=== PATIENT | female | born 1990 | race Caucasian/White ===

== ENCOUNTER 2019-10-18 15:31 | Emergency (ER) | payer OTHER, SELFPAY ==
[2019-10-18 15:58] VITALS: BP 112/76; PULSE 83; RESP 16; TEMP 36.8; O2SAT 99
--- NOTE | 2019-10-18 17:11 | ED.GENADULT ---
HPI - General Adult General Chief complaint: Upper Respiratory Infection Stated complaint: Cough/Sore Throat/Earache/Fever Time Seen by Provider: 10/18/19 17:11 Source: patient and RN notes reviewed Mode of arrival: ambulatory Limitations: no limitations History of Present Illness HPI narrative: 29-year-old female presents with complains of upper respiratory infection symptoms, body aches, bilateral ear pain, facial congestion and pressure, sore throat, fatigue, fever, and cough for 5 days. DayQuil, NyQuil, Zyrtec, vitamin D, and Ibuprofen (last 10/17/19) with some relief. Constant dry cough and intermittent productive cough. Chest congestion. Rhinorrhea and nasal congestion. Denies sore throat. Fevers as high as 100.8F, orally without chills. No drooling, neck or throat swelling. No chest pain, wheezing, or shortness of breath. No exacerbation factors. Denies nausea, vomiting, and abdominal pain. Tolerating liquids well. Amada denies being , LMP 2 weeks ago. Some parts of this dictation were generated by voice recognition software and may contain typographical and/or grammatical inaccuracies. Related Data Allergies Allergy/AdvReac Type Severity Reaction Status Date / Time No Known Allergies Allergy Unverified 11/19/18 12:05 Review of Systems Review of Systems: Narrative: CONSTITUTIONAL: Complains of fever, fatigue. Denies chills, sweats. EYES: Denies visual changes, redness, discharge. ENT: Denies rhinorrhea, congestion, facial congestion and pressure. Denies sore throat, otalgia. CARDIOVASCULAR: Denies chest pain, palpitations, edema. RESPIRATORY: Denies dyspnea, wheezing. Complains of dry cough, intermittent productive cough. . GASTROINTESTINAL: Denies abdominal pain, nausea, vomiting, diarrhea. GENITOURINARY: Denies dysuria, hematuria, abnormal discharge. SKIN: Denies rash or itching. MUSCULOSKELETAL: Denies acute back pain, joint pain. Complains of myalgia. NEUROLOGIC: Denies numbness or focal weakness. Complains of intermittent SHAIKH. PSYCHIATRIC: Denies anxiety or depression. All systems reviewed & are unremarkable except as noted in HPI and below. [facility] Past Medical History Medical History (Updated 10/19/19 @ 00:00 by Background Daemon) Right leg injury Surgical History Surgical History (Updated 10/18/19 @ 17:21 by SEBASTIÁN Cook) Hx of appendectomy Family History Family History (Updated 10/18/19 @ 17:22 by SEBASTIÁN Cook) Grandparent Pancreatic cancer Diabetes mellitus Grandparent Hypertension Social History Social History (Updated 10/18/19 @ 17:22 by SEBASTIÁN Cook) Smoking status: Never smoker Second hand tobacco smoke exposure: No Alcohol intake: current Substance use: never Living arrangements: with family Occupation/Education: occupation Gender identity (if verbalized by the patient): Female Comments At time of signature, agree with nurse past medical, surgical, social, and family history. There is no relevant family history pertinent to the presenting complaint. Exam Narrative: Exam Narrative: GENERAL: This is a well-nourished, well-developed patient, in no apparent distress. Talks in full sentences and ambulates with steady gait without dyspnea. HEAD: normocephalic, atraumatic. EYES: PERRL. Sclera clear/white. Vision is grossly intact. EARS: External ears normal, auditory canals clear and without drainage, TMs normal without perforation. Hearing grossly intact. NOSE: External nose normal with no obvious nasal discharge, nares with mild redness and enlarged turbinates, clear rhinorrhea. SINUSES: Mild tenderness upon palpation to maxillary and frontal sinus. THROAT: Mucous membranes moist, posterior pharynx with PND, mild erythema, no exudate, and normal tonsils. No drainage, no concern for Peritonsillar abscess. No drooling, trismus, or neck swelling. NECK: Neck supple, non-tender without lymphadenopathy, masses or t
== END 2019-10-18 17:30 | disposition home or self-care (01) ==
PROVIDERS: Emergency Provider Nurse Practitioner Family; PCP Emergency Medicine
DX: B34.9 Viral infection, unspecified (principal)
CPT/HCPCS: 99213; G0463

== ENCOUNTER 2020-07-02 08:25 | Emergency (ER) | payer OTHER, SELFPAY ==
--- NOTE | 2020-07-02 08:31 | ED_ITS ---
HPI - Skin/Abscess/Foreign Bdy General Chief complaint: Skin/Abscess/Foreign Body Stated complaint: Rash on legs Related Data Allergies Allergy/AdvReac Type Severity Reaction Status Date / Time No Known Allergies Allergy Verified 07/02/20 08:38 [facility] Past Medical History Medical History (Updated 10/19/19 @ 00:00 by Gaurang Chow) Right leg injury Surgical History Surgical History (Updated 10/18/19 @ 17:21 by SEBASTIÁN Cook) Hx of appendectomy Family History Family History (Updated 10/18/19 @ 17:22 by SEBASTIÁN Cook) Grandparent Pancreatic cancer Diabetes mellitus Grandparent Hypertension Social History Social History (Updated 10/18/19 @ 17:22 by SEBASTIÁN Cook) Smoking status: Never smoker Second hand tobacco smoke exposure: No Alcohol intake: current Substance use: never Gender identity (if verbalized by the patient): Female Discharge Plan Discharge Patient Disposition: Home, Self-Care Condition: Stable Instructions: Antibiotic Form, Contact Dermatitis (DC) Prescriptions: New hydroxyzine pamoate 25 mg capsule 25 mg PO QID Qty: 20 RF: 0 prednisone 20 mg tablet 20 mg PO DAILY Qty: 7 RF: 0 hydrocortisone 2.5 % cream 1 applic topical BID PRN (Reason: allergic reaction) Qty: 28 RF: 0 Follow-up/Referrals: Maged Hale MD [Primary Care Provider] - Time of Disposition: 08:44
[2020-07-02 08:34] VITALS: BP 111/78; PULSE 81; RESP 16; TEMP 37.1; O2SAT 99
--- NOTE | 2020-07-02 08:45 | ED.SKABFB ---
HPI - Skin/Abscess/Foreign Bdy General Chief complaint: Skin/Abscess/Foreign Body Stated complaint: Rash on legs Source: patient and RN notes reviewed Mode of arrival: ambulatory Limitations: no limitations History of Present Illness HPI narrative: This is a 30-year-old white female who presents today with a rash below her buttocks area. According to patient she developed a rash that was itchy, erythematous and edematous underneath her buttocks. It has the appearance of of a tracing of the toilet seat. Patient noted that she went to a winery and sat on the toilet seat she also noted that she started using a new disinfectant on her toilet seat which can be the cause of her rash. She did put hydrocortisone and calamine lotion on the site with no relief. She was discharged today with prescription strength hydrocortisone, prednisone and hydroxyzine complaint: rash Related Data Allergies Allergy/AdvReac Type Severity Reaction Status Date / Time No Known Allergies Allergy Verified 07/02/20 08:38 Review of Systems Review of Systems: All systems reviewed & are unremarkable except as noted in HPI and below (10 point system review) [facility] Past Medical History Medical History (Updated 10/19/19 @ 00:00 by Gaurang Chow) Right leg injury Surgical History Surgical History (Updated 10/18/19 @ 17:21 by SEBASTIÁN Cook) Hx of appendectomy Family History Family History (Updated 10/18/19 @ 17:22 by SEBASTIÁN Cook) Grandparent Pancreatic cancer Diabetes mellitus Grandparent Hypertension Social History Social History (Updated 10/18/19 @ 17:22 by SEBASTIÁN Cook) Smoking status: Never smoker Second hand tobacco smoke exposure: No Alcohol intake: current Substance use: never Gender identity (if verbalized by the patient): Female Exam Narrative: Exam Narrative: GENERAL: This is a well-nourished, well-developed patient, in no apparent distress. HEAD: normocephalic, atraumatic. EYES: PERRL. Sclera clear/white. Vision is grossly intact. EARS: External ears normal, auditory canals clear and without drainage, TMs normal without perforation. Hearing grossly intact. NOSE: External nose normal with no obvious nasal discharge, nares without redness, no rhinorrhea. THROAT: Mucous membranes moist, posterior pharynx clear. NECK: Neck supple, non-tender without lymphadenopathy, masses or thyromegaly. CARDIOVASCULAR: Regular rate and rhythm without murmurs, gallops, or rubs. RESPIRATORY: Clear to auscultation. Breath sounds equal bilaterally. No wheezes, rales, or rhonchi. GASTROINTESTINAL: Abdomen soft, non-tender, nondistended. Bowel sounds are active. No hepato-splenomegaly, or palpable masses. No guarding. SKIN: warm, edematous, erythema slightly raised. No crusting or oozing scaling. NEURO: awake, alert, and oriented to person, place and time. There were no obvious focal neurologic abnormalities. Steady gait EXTREMITIES: Normal range of motion. No edema. No calf tenderness. Negative Homans sign bilaterally. BACK: Nontender without deformity or crepitance. No flank tenderness. Course Course Emergency Course: Started hydrocortisone, prednisone, hydroxyzine Vital Signs Vital signs: Vital Signs Temperature 98.7 F 07/02/20 08:34 Pulse Rate 81 07/02/20 08:34 Respiratory Rate 16 07/02/20 08:34 Blood Pressure 111/78 07/02/20 08:34 Pulse Oximetry 99 07/02/20 08:34 Temperature 98.7 F 07/02/20 08:34 Pulse Rate 81 07/02/20 08:34 Respiratory Rate 16 07/02/20 08:34 Blood Pressure 111/78 07/02/20 08:34 Pulse Oximetry 99 07/02/20 08:34 Discharge Plan Discharge Patient Disposition: Home, Self-Care Condition: Stable Instructions: Antibiotic Form, Contact Dermatitis (DC) Prescriptions: New hydroxyzine pamoate 25 mg capsule 25 mg PO QID Qty: 20 RF: 0 prednisone 20 mg tablet 20 mg PO DAILY Qty: 7 RF: 0 hydrocortisone 2.5 % cr
== END 2020-07-02 08:50 | disposition home or self-care (01) ==
PROVIDERS: Emergency Provider Nurse Practitioner; PCP Emergency Medicine
DX: L25.9 Unspecified contact dermatitis, unspecified cause (principal)
CPT/HCPCS: 99213; G0463

== ENCOUNTER 2020-12-26 17:30 | Emergency (ER) | payer OTHER, SELFPAY ==
--- NOTE | ~2020-12-26 | XR_ITS ---
EXAMINATION: XR chest 2V 12/26/2020 18:04 INDICATION: Cough for 2 weeks PROCEDURE: 2 view chest COMPARISON: No prior studies for comparison. FINDINGS: The lungs are clear. The cardiomediastinal silhouette is within normal limits. There are no pleural effusions. There is no pneumothorax suspected. IMPRESSION: 1: NO ACUTE CARDIOPULMONARY DISEASE. Reviewed, dictated and finalized at location A.
[2020-12-26 17:39] VITALS: BP 127/84; PULSE 85; RESP 16; TEMP 36.4; O2SAT 100
--- NOTE | 2020-12-26 17:49 | ED.GENADULT ---
HPI - General Adult General Chief complaint: Upper Respiratory Infection Stated complaint: Cough Time Seen by Provider: 12/26/20 17:49 Source: patient Mode of arrival: ambulatory Limitations: no limitations History of Present Illness HPI narrative: 28-year-old female patient presents to the [facility] with complaints of a cough for the past 2 and half weeks. Patient states she has been tested for Covid multiple times in the past couple of weeks and has had 4 - Covid test. Patient states she has been taking [id number] Mucinex and DayQuil and NyQuil for symptoms. Patient states she does have seasonal allergies. Patient denies any chest pain or shortness of breath. Patient states she does feel like she has a lot of chest congestion congestion feels like her cough is a lot deeper than it was. Denies fevers, body aches or chills. Denies being a smoker. Patient states she also has had a runny nose with the symptoms but denies any ear pain or sore throat. Related Data Allergies Allergy/AdvReac Type Severity Reaction Status Date / Time No Known Allergies Allergy Verified 12/26/20 17:33 Review of Systems Review of Systems: Narrative: CONSTITUTIONAL: Denies fever, chills, or sweats. EYES: Denies visual changes, redness, or discharge. ENT: Positive rhinorrhea, denies congestion, sore throat, or otalgia. CARDIOVASCULAR: Denies chest pain, palpitations, or edema. RESPIRATORY: Positive cough, denies dyspnea. GASTROINTESTINAL: Denies abdominal pain, nausea, vomiting, or diarrhea. GENITOURINARY: Denies dysuria or hematuria. SKIN: Denies rash or itching. MUSCULOSKELETAL: Denies back pain, joint pain, or myalgia. NEUROLOGIC: Denies headache, numbness, or weakness. PSYCHIATRIC: Denies anxiety or depression. [facility] Past Medical History Medical History Right leg injury Surgical History Surgical History Hx of appendectomy Family History Family History Grandparent Pancreatic cancer Diabetes mellitus Grandparent Hypertension Social History Social History (Reviewed 12/26/20 @ 17:49 by KEELEY Abarca Smoking status: Never smoker Second hand tobacco smoke exposure: No Alcohol intake: current Substance use: never Gender identity (if verbalized by the patient): Female Comments At the time of my signature I agree with nursing past medical history, surgical, social, and family history. There is no relevant family history pertinent to the presenting complaint. Exam Narrative: Exam Narrative: GENERAL: Well-appearing, well-nourished, and in no acute distress. HEAD: Normocephalic, atraumatic. EYES: PERRLA and EOMI. ENT: Nares with erythema and edema noted bilaterally, clear rhinorrhea or epistaxis. Mucous membranes moist. Posterior pharynx with some postnasal drip present. No exudates or lesions present no tonsil large mid. NECK: Supple. No lymphadenopathy CHEST: Slight decrease noted to right upper and right lower lobes on auscultation. No respiratory distress. Patient able talk in clear complete sentences. No tripoding noted HEART: Regular rate and rhythm. No murmur heard. Normal peripheral pulses. ABDOMEN: Soft, nontender, nondistended, normal active bowel sounds. EXTREMITIES: Normal range of motion. No edema. SKIN: Warm, dry, no rash. NEURO: No focal deficits. Alert and oriented x3. Course Reevaluation(s) Reevaluation #1: Reevaluated patient and notified her that her x-ray is negative for any acute pneumonia. Patient's lungs are clear after her DuoNeb treatment. Discussed with patient she most likely has a case of bronchitis in which we will discharge her home with a course of steroids, an inhaler and a daily antihistamine. Discussed with patient if she continues to have worsening symptoms, low-grade fevers, shortness of breath or any oth
[2020-12-26] MEDS: ALBUTEROL SULFATE NEB 2.5 MG/3 ML INH INHALATION (18:13)
[2020-12-26] MEDS: IPRATROPIUM BR 0.02% INH SOLN 0.5 MG/2.5 ML VIAL INHALATION (18:13)
[2020-12-26 18:14] VITALS: PULSE 85; RESP 16; O2SAT 100
[2020-12-26 18:38] VITALS: PULSE 88; RESP 16; O2SAT 99
== END 2020-12-26 18:43 | disposition home or self-care (01) ==
PROVIDERS: Emergency Provider Nurse Practitioner Family; PCP Emergency Medicine
DX: J40 Bronchitis, not specified as acute or chronic (principal)
CPT/HCPCS: 71046; 94640; 99213; G0463

== ENCOUNTER 2023-09-28 09:25 | Emergency (ER) | payer OTHER, SELFPAY ==
--- NOTE | ~2023-09-28 | XR_ITS ---
Left elbow Technique: AP, oblique, and lateral views were obtained. Clinical History: Pain Findings: There is probable displacement fat pads, compatible joint effusion and suspected radiograph ically occult radial head fracture. Osseous alignment appears anatomic. Impression: Suspected radiographically occult radial head fracture with associated joint effusion present. Reviewed, dictated and finalized at [facility]. GATION SPECIALIST Impression: Suspected radiographically occult radial head fracture with associated joint ef fusion present.
[2023-09-28 09:46] VITALS: BP 118/73; PULSE 80; RESP 16; TEMP 37.4; O2SAT 100
--- NOTE | 2023-09-28 09:59 | ED.UPPEXIN ---
HPI - Extremity Injury (Upper) General Chief Complaint: Extremity Injury, Upper Stated Complaint: fall injury Time Seen by Provider: 09/28/23 09:48 Source: patient Mode of arrival: ambulatory Limitations: no limitations History of Present Illness HPI narrative: Shahram is a 33-year-old female patient presenting to the clinic today with complaints of left elbow injury after falling on the ice yesterday. Reports she fell and landed on the left elbow. Is having pain to the posterior elbow and distal humerus. Is unable to fully extend her elbow due to pain. Related Data Allergies Allergy/AdvReac Type Severity Reaction Status Date / Time No Known Allergies Allergy Verified 09/28/23 10:05 Review of Systems Review of Systems: Pertinent positives per HPI. Patient denies any fever, chills, rash, headache, visual changes, dizziness, cough, runny nose, sore throat, shortness of breath, chest pain, palpitations, nausea, vomiting, diarrhea, constipation, abdominal pain, or any urinary issues. [facility] Past Medical History Medical History Right leg injury Surgical History Surgical History Hx of appendectomy Family History Family History Grandparent Pancreatic cancer Diabetes mellitus Grandparent Hypertension Social History Social History Smoking status: Never smoker Second hand tobacco smoke exposure: No Alcohol intake: current Substance use: never Living arrangements: with family Occupation/Education: occupation Gender identity (if verbalized by the patient): Female Comments At the time of my signature, I reviewed and agree with the nursing past medical, surgical, social, and family history. There is no relevant family history pertinent to the patient complaint. Exam Narrative: General: Well-developed, well nourished, in no apparent distress Head: Normocephalic, atraumatic. Cardio: Regular rate and rhythm, s1 and s2 normal, no murmur appreciated. Resp: Clear to auscultation bilaterally, no rhonchi, rales, wheezing or rubs. Musculoskeletal: No deformity, no obvious bruising but swelling noted when compared to the right elbow, tender to palpation over the distal humerus and the radial head, pain with full extension of the elbow and range of motion is limited due to this, muscle strength strong and equal, peripheral pulse strong, no edema, no cyanosis, normal gait and station Course Course Emergency Course: Portions of this record may have been created with voice recognition software. Level of Care: Express Care Visit Vital Signs Vital signs: Vital Signs Temperature 37.4 C 09/28/23 09:46 Pulse Rate 80 09/28/23 09:46 Respiratory Rate 16 09/28/23 09:46 Blood Pressure 118/73 09/28/23 09:46 Pulse Oximetry 100 09/28/23 09:46 Oxygen Delivery Room Air 09/28/23 09:46 Temperature 37.4 C 09/28/23 09:46 Pulse Rate 80 09/28/23 09:46 Respiratory Rate 16 09/28/23 09:46 Blood Pressure 118/73 09/28/23 09:46 Pulse Oximetry 100 09/28/23 09:46 Oxygen Delivery Room Air 09/28/23 10:06 Vital signs reviewed MDM - Extremity Injury (Upper) MDM Narrative Medical decision making narrative: At the time of visit patient is resting comfortably on the exam table. Patient appears to be nontoxic. Diagnostics: X-ray of the left elbow was performed and shows a probable occult radial head fracture with joint effusion Plan: Will place the patient in a long-arm posterior OCL with an arm sling. Referral to Dr. Looney- orthopaedics. Work note given. Placed in arm sling. Supportive measures were discussed with the patient and they voiced understanding discharge instructions and agrees to treatment plan. Return precautions reviewe
== END 2023-09-28 10:33 | disposition home or self-care (01) ==
PROVIDERS: Emergency Provider Nurse Practitioner Family; PCP Family Medicine
DX: S52.125A Nondisplaced fracture of head of left radius, initial encounter for closed fracture (principal); W00.0XXA Fall on same level due to ice and snow, initial encounter; M25.422 Effusion, left elbow
CPT/HCPCS: 29105; 73080; 99214; A4565; G0463

== ENCOUNTER → 2023-09-29 07:55 | Outpatient (CLI) | payer OTHER, SELFPAY ==
--- NOTE | ~2023-09-29 | MMUS_ITS ---
EXAMINATION: MM diagnostic sammy LT w patric, US breast LT limited HISTORY: Palpable mass in the upper outer quadrant of the left breast. TECHNIQUE: Craniocaudal, mediolateral, and mediolateral oblique 3-D tomosynthesis images of the left breast were performed and synthetic 2-D images were generated. CAD analysis was submitted and interpr eted. High resolution limited left breast ultrasound was performed. COMPARISON: None, baseline BREAST PARENCHYMAL COMPOSITION: The breasts are heterogeneously dense, which may obscure small masses . FINDINGS: MAMMOGRAPHIC FINDINGS: There is a 1.9 cm round, circumscribed, equal density mass in the posterior third of the upper outer quadrant of the breast at the 2:00 location, 5 cm from the nipple corresponding to the palpable abnor mality of concern. There is a 1.6 cm round, low-density mass in the anterior third of the lower-outer breast at the 5:00 location, 3.5 cm from the nipple. No suspicious calcification or architectural di stortion are identified. ULTRASOUND: There is a 1.8 x 1.6 cm oval, circumscribed, parallel, hypoechoic mass with mixed posterior features and minimal internal vascularity at the 2:00 location, 6 cm from the nipple corresponding to the palp able abnormality of concern. There is a 1.6 x 1.1 cm oval, circumscribed, parallel, hypoechoic mass w ith no posterior features or internal vascularity at the 5:00 location, 3 cm from the nipple. IMPRESSION: 1. Probably benign left breast masses. 2. Recommend 6 month follow-up left diagnostic mammogram and ultrasound. BI-RADS category 3, probably benign findings. Reviewed, dictated and finalized at location A. WORKER IMPRESSION: 1. Probably benign left breast masses. 2. Recommend 6 month follow-up left diagnostic mammogram and ultrasound. BI-RADS category 3, probably benign findings.
== END ==
PROVIDERS: PCP Obstetrics & Gynecology; Visit Provider Obstetrics & Gynecology
DX: R92.8 Other abnormal and inconclusive findings on diagnostic imaging of breast (principal)
CPT/HCPCS: 76642; 77061; 77065; G0279

== ENCOUNTER 2024-05-26 08:01 | Outpatient (CLI) | payer OTHER, SELFPAY ==
--- NOTE | ~2024-05-26 | MMUS_ITS ---
EXAMINATION: MM diagnostic sammy LT w patric, US breast LT limited HISTORY: Six-month follow-up of left breast masses TECHNIQUE: 3-D tomosynthesis images of the left breast were performed and synthetic 2-D images were g enerated. CAD analysis was submitted and interpreted. High resolution limited left breast ultrasound was performed. COMPARISON: 09/29/2023 BREAST PARENCHYMAL COMPOSITION:Dense: The breasts are heterogeneously dense, which may obscure small masses. FINDINGS: MAMMOGRAPHIC FINDINGS: Parenchymal pattern of the left breast is unchanged. Stable circumscribed 2 cm round mass at the uppe r, outer left breast. Additional circumscribed low-density mass is also unchanged, at the lower left breast, measuring approximately 1.6 cm in diameter. No new mass lesion or distortion. No suspicious p arenchymal calcifications. ULTRASOUND: At the 2:00 position left breast, 6 cm the nipple, there is a stable 1.9 x 1.6 x 2.1 cm ovoid circums cribed hypoechoic solid mass with posterior through transmission. Similar-appearing additional stable mass present at the left breast 5:00 position, 3 cm from the nipple, measuring 1.4 x 1.3 x 1.2 cm. IMPRESSION: Stable left breast masses, as detailed above. 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 Additional follow-up ultrasound in 6 months recommended, to show continued stability for at least one year. BI-RADS category 3, probably benign findings. Reviewed, dictated and finalized at [facility]. IMPRESSION: Stable left breast masses, as detailed above. 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 Additional follow-up ultrasound in 6 months recommended, to show continued stability for at least one year. BI-RADS category 3, probably benign findings.
== END 2024-05-26 08:02 | disposition home or self-care (01) ==
PROVIDERS: PCP Family Medicine; Visit Provider Obstetrics & Gynecology
DX: R92.8 Other abnormal and inconclusive findings on diagnostic imaging of breast (principal); N63.21 Unspecified lump in the left breast, upper outer quadrant; N63.23 Unspecified lump in the left breast, lower outer quadrant
CPT/HCPCS: 76642; 77061; 77065; G0279

== ENCOUNTER 2024-07-27 15:39 | Emergency (ER) | payer OTHER, SELFPAY ==
[2024-07-27 15:56] VITALS: BP 113/73; PULSE 94; RESP 16; TEMP 36.8; O2SAT 99
[2024-07-27 16:21] LABS: EDSTREPNEGPOS1 Negative (Negative)
--- NOTE | 2024-07-27 17:48 | ED.URI ---
HPI - URI/Sore Throat General Chief Complaint: Upper Respiratory Infection Stated Complaint: sore throat,SHAIKH work note Time Seen by Provider: 07/27/24 17:50 Source: patient, RN notes reviewed and old records reviewed Mode of arrival: ambulatory Limitations: no limitations History of Present Illness HPI Narrative: Patient presents with one-week history of cough, fever, nasal congestion, sinus pain. She reports that she thought she was getting better about assisted through, but now feels worse again. She states night sweats, chills. Nasal voice noted. Says cough has become productive. She denies any wheezing or shortnessOf breath. She denies any injury or trauma. She is not in any distress at this time. She voices no other concerns or complaints. She has been taking multiple [id number] medications with moderate relief. Related Data Allergies Allergy/AdvReac Type Severity Reaction Status Date / Time No Known Allergies Allergy Verified 07/17/24 14:56 Review of Systems Review of Systems: All systems reviewed & are unremarkable except as noted in HPI and below Constitutional: Constitutional: Reports as per HPI, Reports no additional constitutional complaints, Reports body ache(s), Reports headache(s) and Reports lethargy ENT: Reports system reviewed and no additional complaints, except as documented, Reports change in voice, Reports nasal congestion, Reports nasal discharge, Reports sinus pain, Reports sinus pressure and Reports sore throat Cardiovascular: Cardiovascular: Reports no additional cardiovascular complaints Respiratory: Respiratory: Reports no additional respiratory complaints, Reports change in phlegm color, Reports cough and Reports excessive phlegm production Gastrointestinal: Gastrointestinal: Reports no additional gastrointestinal complaints PMFSH Past Medical History Medical History Contusion of left elbow IFG (impaired fasting glucose) Right leg injury Surgical History Surgical History Hx of appendectomy Family History Family History Grandparent Pancreatic cancer Diabetes mellitus Grandparent Hypertension Social History Social History Social History: Smoking status: Never smoker Second hand tobacco smoke exposure: No Alcohol intake: current Alcohol use details: Occasionally Substance use: never Substance use type: does not use Do You Feel Safe in your Home?: Yes Lack of Transportation: No Lack of Food: Never True Current Housing: I Have Housing Concerned About Future Housing: No Difficulty Paying Gas/Electric Bills: No Difficulty Paying for Meds: No Currently Unemployed: No Education: Don't Know Difficulty w/ Childcare or Family Care: No Living arrangements: with family Occupation/Education: occupation 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 There is no relevant family history pertinent to the patient complaint. Exam Const: General: cooperative, no acute distress, alert and awake Orientation/consciousness: oriented to person, oriented to place and oriented to time HENMT: Head: normal to inspection Ears: TM abnormal dull bilateral Face/Nose/Sinus: sinus tenderness Mouth: Yes moist mucous membranes Throat: posterior oropharynx normal Resp: Effort & Inspection: normal respiratory effort and able to speak in complete sentences Auscultation: clear to auscultation bilaterally, no crackles, no rales, no rhonchi and wheezes ( Mild, scattered) Cardio: Palpation: normal PMI Rate: regular rate Rhythm: regular rhythm Heart sounds: S1 normal heart sound present and S2 normal heart sound present Neuro: General: oriented to person, oriented to place and oriented to time Cranial nerves: Yes CN's II-XII intact bilaterally Psych: Appearance: grossly normal Thought process: Normal thought process present Insight: Good insight present (Psych) Judgement: Good judgement present (Psych) Course Course Level of Care: Express Care Visit Vital Signs Vital signs: Vital Signs Temperature 98.3 F 07/27/24 15:56 Pulse Rate 94 07/27/24 15:56 Respiratory Rate 16 07/27/24 15:56 Blood Pressure 113/73 07/27/24 15:56 Pulse Oximetry 99 07/27/24 15:56 Oxygen Delivery Room Air 07/27/24 15:56 Temperature 98.3 F 07/27/24 15:56 Pulse Rate 94 07/27/24 15:56 Respiratory Rate 16 07/27/24 15:56 Blood Pressure 113/73 07/27/24 15:56 Pulse Oximetry 99 07/27/24 15:56 Oxygen Delivery Room Air 07/27/24 15:56 Reviewed MDM - URI/Sore Throat MDM Narrative Medical decision making narrative: patient nontoxic appearing. Nasal voice noted, sinus tenderness, mild scattered wheezes. Treat for sinusitis with doxycycline, short bursts oral steroids. Bronchodilators for wheezing. Follow-up with primary care provider. Emergency department for new or worse symptoms. Discharge instructions reviewed with patient, as well as provided in writing per nursing staff. The instructions also include specific and strict return/GO TO THE ER as well as f/u information. All questions have been answered, and the patient deny any further questions with discharge and discharge plan. Some parts of this dictation were generated by voice recognition software and may contain typographical and/or grammatical inaccuracies. Differential Diagnosis Differential diagnosis: Likely upper respiratory infection, otitis media, sinusitis, viral infection, bronchitis, influenza and pharyngitis Medical Records Attestation: I reviewed the patient's medical records. Lab Data Attestation: I reviewed the patient's lab results. Labs: Lab Results 07/27/24 Range/Units 15:58 POC Grp A Strep Screen Negative (Negative) Discharge Plan Discharge Clinical Impression: Sinusitis Qualifiers: Sinusitis location: maxillary Chronicity: acute Recurrence: not specified as recurrent Qualified Code(s): J01.00 - Acute maxillary sinusitis, unspecified Patient Disposition: Home, Self-Care Condition: Stable Instructions: Antibiotic Form, Sinusitis (ED) Additional Instructions: Take medications as prescribed. Follow with primary care providers. Emergency department for new or worse symptoms Patient Language: Yi Prescriptions: New doxycycline hyclate 100 mg tablet 100 mg PO BID Qty: 14 0RF prednisone 50 mg tablet 50 mg PO DAILY Qty: 5 0RF albuterol sulfate [Ventolin HFA] 90 mcg/actuation HFA aerosol inhaler 2 puff inhalation QID PRN (Reason: shortness of breath or wheezing) Qty: 8.5 0RF No Action lisdexamfetamine [Vyvanse] 30 mg capsule 30 mg PO QAM Qty: 30 0RF Follow-up/Referrals: Darnell Rose MD [Primary Care Provider] - 2 Weeks Stand Alone Forms: Work/School Release IP Time of Disposition: 18:04
== END 2024-07-27 18:10 | disposition home or self-care (01) ==
PROVIDERS: Emergency Provider Nurse Practitioner Family; PCP Family Medicine
DX: J01.00 Acute maxillary sinusitis, unspecified (principal)
CPT/HCPCS: 87081; 87880; 99213; G0463

== ENCOUNTER 2025-01-01 08:33 | Outpatient (CLI) | payer OTHER, SELFPAY ==
--- NOTE | ~2025-01-01 | US_ITS ---
EXAMINATION TYPE: US breast LT limited COMPARISON: 05/26/2024: 2424 REASON FOR STUDY: 6 month f/u TECHNIQUE: Targeted sonographic evaluation of the left breast was performed. INTERPRETATION: At C2 o'clock position left breast, 6 cm from nipple, there is a stable hypoechoic solid mass measuri ng 2.0 x 1.6 x 2.0 cm, most compatible fibroadenoma. Additional 1.3 x 1.2 x 1.5 cm similar appearing mass is also present at the 5:00 position left breast, 3 cm in the nipple, also essentially unchanged . IMPRESSION: Stable left breast masses, as detailed above, most compatible with fibroadenomas. BI-RADS CATEGORY: BI-RADS 3: Probably benign. Additional follow-up ultrasound in September-October 2025 recommended to e stablish 2 years of stability. Reviewed, dictated and finalized at location . IMPRESSION: Stable left breast masses, as detailed above, most compatible with fibroadenoma s. BI-RADS CATEGORY: BI-RADS 3: Probably benign. Additional follow-up ultrasound in September-October 2025 recommended to establish 2 years of stability.
== END 2025-01-01 08:34 | disposition home or self-care (01) ==
LOC: MICIMG 08:33
PROVIDERS: PCP Family Medicine; Visit Provider Obstetrics & Gynecology
DX: R92.8 Other abnormal and inconclusive findings on diagnostic imaging of breast (principal)
CPT/HCPCS: 76642